=== PATIENT | female | born 1995 | race Caucasian/White ===

== ENCOUNTER 2017-02-02 17:09 | Emergency (ER) | payer OTHER ==
[~2017-02-02] VITALS: Ht 160 cm; Wt 43.6 kg
[2017-02-02 17:16] VITALS: BP 116/75; PULSE 82; RESP 16; O2SAT 100
[2017-02-02 18:02] LABS: Mean Corpuscular Hemoglobin 31.9 pg (27.0-35.0); Mean Corpuscular Volume 92.2 fL (81-100)
[2017-02-02 18:18] LABS: APPEARANCE,URINE HAZY (CLEAR,HAZY); COLOR,URINE YELLOW (YELLOW); OCCULT BLOOD,URINE NEGATIVE (NEGATIVE); PH,URINE 7.5 (5.0-8.0); UROBILINOGEN,URINE NORMAL (NORMAL)
--- NOTE | 2017-02-02 18:24 | ED.REPORT ---
HPI- Female Date of Service Feb 02, 2017 ED Provider: Dale Doran MD The patient is a 21 year old female 15 weeks who presents to the ED due to intermittent, crampy lower right abdominal cramping onset yesterday. Associated symptoms include right sided headache, vomiting. She reports that she hasn't been able to keep any water or food down for a day. She reports that she has had a lot of problems with nausea and vomiting throughout her . She is not currently taking anything for her symptoms. She denies vaginal bleeding and fever. The pt experienced extreme morning sickness including nausea and vomiting during the first trimester and lost 14 lbs but recently her is going well. Nursing Notes Stated Complaint: VOMITING, [id number] Chief Complaint: Female Abdominal Pain Nursing Notes Reviewed: Yes Allergies: Coded Allergies: No Known Allergies (Unverified , 02/02/17) Scheduled Nitrofurantoin Monohyd/M-Cryst (MacroBid) 100 Mg Capsule 100 MG PO BID Pyridoxine (Vitamin B-6) 50 Mg Tablet 50 MG PO DAILY Scheduled PRN Doxylamine Succinate (Unisom) 25 Mg Tablet 25 MG PO BID PRN PRN For Nausea General Time Seen by MD: 18:18 Chief Complaint Abdominal pain... (RLQ) Hx Obtained From: Patient Arrived By: Walk-in Sudden in Onset?: Yes Onset Occurred: Yesterday Symptom Duration: Since onset Location: : RLQ Quality: Cramping Severity: Current: Mild Status: Positive - home urine HCG Recent Healthcare: No recent doctor visit, No recent hospitalization Similar Sx Previous: No Past Medical History Past Medical History Healthy Past Surgical History Reports: Appendectomy Smoking History Current Every Day Smoker Social History Alcohol Use: "Social" Drug Use: THC Ambulatory Status Independent Review of Systems Constitutional: Denies: Fever GI: Reports: Abdominal pain, Nausea, Vomiting, Denies: Diarrhea Female: Reports: , Denies: Vaginal bleeding - abnl, Vaginal discharge Endocrine: Reports: Weight loss Neurologic: Reports: Headache Complete sys rev & neg: except as marked. 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 General/Constitutional: Awake, Alert, No acute distress, Cooperative, Not toxic appearing Respiratory / Chest: Atraumatic, Breath sounds NL, Breath sounds = bilat, No respiratory distress Cardiovascular: Heart rate NL, Regular rhythm, Heart sounds NL Abdomen: Atraumatic, Soft, Non-tender, No guarding, No rebound, BS normoactive , No distention Back: Atraumatic, Inspection NL, Non-tender Skin: Atraumatic, Color NL, Warm, Dry Head / Eyes: Atraumatic, Normocephalic, PERRL, EOMI Upper Extremity / MS: Atraumatic, Inspection NL, Full range of motion, No deformity Lower Extremity / Pelvis / MS: Atraumatic, Inspection NL, Full range of motion , No deformity Neurologic: Oriented X3, Speech NL, No motor deficits Interpretation & Diagnostics Lab Results Interpretation Result Diagram: 02/02/17 1755 02/02/17 1755 Test 02/02/17 17:48 02/02/17 17:55 Urine Color Yellow (YELLOW) Urine Appearance Hazy (CLEAR,HAZY) Urine pH 7.5 (5.0-8.0) Urine Specific [place] 1.010 (1.003-1.035) Urine Protein Negativemg/dL (NEG,TRACE) Urine Glucose (UA) Negativemg/dL (NEGATIVE) Urine Ketones 15mg/dL (NEGATIVE) Urine Occult Blood Negative (NEGATIVE) Urine Nitrite Negative (NEGATIVE) Urine Bilirubin Negative (NEGATIVE) Urine Urobilinogen Normalmg/dL (NORMAL) Urine Leukocyte Esterase Negative (NEGATIVE) Urine RBC 0-2/hpf (0-2) Urine WBC 0-5/hpf (0-5) Urine Epithelial Cells Few/hpf (NONE-MOD) Urine Crystals None seen (NONE SEEN) Urine Bacteria Moderate/hpf (NONE-FEW) Urine Hyaline Casts None/lpf (NONE) Urine Granular Casts None seen (NONE SEEN) Urine Waxy Casts None seen (NONE SEEN) Urine Red Blood Cell Casts None seen (NONE SEEN) Urine White Blood Cell Casts None seen (NONE SEEN) Urine Mucus None seen (None Seen) Urine Trichomonas None seen (NONE SEEN) Urine Yeast None (NONE SEEN) Urinalysis Comment None Urine Culture Reflexed Indicated White Blood Count 13.7th/mm3 (3.8-10.1) Red Blood Count 3.85mil/mm3 (3.90-5.20) Hemoglobin 12.3g/dL (12.0-15.6) Hematocrit 35.5% (35.0-46.0) Mean Corpuscular Volume 92.2fL (81-100) Mean Corpuscular Hemoglobin 31.9pg (27.0-35.0) Mean Corpuscular Hemoglobin Concent 34.6% (32.0-37.0) Red Cell Distribution Width 12.6% (12.3-15.4) Platelet Count 182bil/L (150-400) Sodium Level 135mEq/L (134-144) Potassium Level 3.8mEq/L (3.5-5.2) Chloride Level 101mEq/L (97-108) Carbon Dioxide Level 21mmol/L (18-29) Blood Urea Nitrogen 9mg/dL (6-20) Creatinine 0.36mg/dL (0.57-1.00) Estimat Glomerular Filtration Rate 320mL/min (>59) Glucose Level 84mg/dL (60-99) Calcium Level 9.1mg/dL (8.5-10.1) Total Bilirubin 0.4mg/dL (0.0-1.2) Aspartate Amino Transf (AST/SGOT) 22U/L (0-50) Alanine Aminotransferase (ALT/SGPT) 17U/L (0-32) Alkaline Phosphatase 35U/L (25-150) Total Protein 6.7g/dL (6.4-8.4) Albumin 3.9g/dL (3.4-5.0) HCG Beta Subunit [id number]/mL Hold Edwards Top Tube Received (Received) Re-Eval/Medical Decision Med Decision/Clinical Course Patient is a generally healthy 21-year-old female approximately 15 weeks' who presents to the emergency department complaining of nausea and vomiting as well as occasional right lower abdominal pain. She has previously had an appendectomy. Here in the emergency department the patient is afebrile with stable vital signs and in no apparent distress. She denies any vaginal bleeding or other complaints. She was treated with Zofran and was able to tolerate fluids drinking several glasses of juice and water without any emesis. Laboratory studies notable as below: CBC 13.7 CMP unremarkable HCG 78789 UA moderate bacteria negative leukocytes negative nitrates sent for culture vital signs good ULTRASOUND IMPRESSION: normal placenta is low lying right ovary looks fine pt does not have appendix At this time, no evidence of threatened . Serial abdominal examinations remained benign. Patient does appear to have possible urinary tract infection and will therefore be treated with a course of Macrobid. I have advised doxylamine and vitamin B6 for management of nausea and vomiting in . At this time ultrasound is reassuring and she is tolerating PO. He does not appear significantly dehydrated. I suspect that her pain is related to round ligament discomfort. While she does have moderate bacteria on her urinalysis I see no evidence that her pain is related to pelvic nephritis and she is overall very well in appearance. She will follow up closely with her FAMILY PHYSICIAN. Prior to discharge follow-up and return precautions were reviewed in detail with the patient who verbalized understanding and agreement with the plan. The patient was discharged in stable condition. Re-Evaluation/Progress #1: Time of Eval: 19:35 Re-Evaluation/Progress Note: Plan for IV fluids, IV benadryl and zofran ODT. Re-Evaluation/Progress #2: Time of Eval: 19:55 Re-Evaluation/Progress Note: Pt rechecked. Informed pt of normal US results, diagnosis of UTI and plan for treatment. Pt understands and agrees with plan. F/U and RTER warnings given. All questions addressed. Counseled Regarding: Diagnosis, Lab results, Need for follow-up, When/why to return to ED Discharge & Departure Impression: Primary Impression: Urinary tract infection Urinary tract infection type: site unspecified Hematuria presence: without hematuria Qualified Code: N39.0 - Urinary tract infection, site not specified Additional Impressions: Nausea and vomiting Vomiting type: unspecified Vomiting Intractability: unspecified Qualified Code: R11.2 - Nausea with vomiting, unspecified Weeks of gestation: 15 weeks Qualified Code: Z3A.15 - 15 weeks gestation of Leukocytosis Leukocytosis type: unspecified Qualified Code: D72.829 - Elevated white blood cell count, unspecified Disposition: Home Discharge Condition All VS Reviewed: Yes Condition: Stable Additional Instructions: The US showed a normal fetus. The baby is healthy and growing normally. To help with nausea and vomiting, I recommend taking the sleep aid doxylamine (unisom) and Vitamin B6 as well. Both of these are safe during . Your urine shows some bacteria. I am going to send you home with antibiotics for a urinary tract infection. Please follow up with your OBGYN in the next 1-3 days. Return to the Emergency Department if you experience any new or worsening symptoms including vaginal bleeding, cramping, fevers, chills or abdominal pain. Thank you for entrusting us with your care today. Referrals: [facility] (PCP) [facility] [place] Att[facility] Portion of this note were transcribed by Soraya Nielsen. I, Dr. Doran, personally performed the history, physical exam, and medical decision-making: I reviewed and confirmed the accuracy for the information in the transcribed note. Signed by: nikia Alcala, 02/02/17 2100 copies to: [facility] Dale Doran MD Feb 02, 2017 18:24 Soraya Nielsen Feb 02, 2017 19:42
[2017-02-02] MEDS ORDERED: 0.9% Sodium Chloride 1,000 ML IV ONE (18:25)
[2017-02-02] MEDS ORDERED: PYR50 PO (19:59)
[2017-02-02] MEDS ORDERED: DOXY25TA46 PO (19:59)
[2017-02-02] MEDS ORDERED: NITR100 PO (20:00)
[2017-02-02 20:06] VITALS: BP 105/71; PULSE 15; RESP 16; O2SAT 96
--- NOTE | 2017-02-02 20:23 | DRSVH ---
PROCEDURE: US OB FOLLOW UP GROWTH AND TRANSVAGINAL INDICATIONS: preg, cramping, look at appendix if possible OUTSIDE/PRIOR DATING DATA: Last menstrual period (LMP): Unknown. LMP-based estimated date of delivery (ILEANA): Unknown. First dating scan (date and location): 12/06/16. Estimated date of delivery (ILEANA) from first dating scan: 07/31/17. TECHNIQUE: Real-time scanning was performed of the fetus, with image documentation and biometric measurements. COMPARISON: None. FINDINGS: General: A single living intrauterine gestation is present. Presentation: Variable. Placenta: Placental position is anterior, with a low-lying placenta 1 cm from internal os. OB-REGIONAL DIRECTOR OF ADMISSIONS Ultrasound Procedure Report Summary Fetus Summary Estimated Gestational Age from first dating scan: 14 weeks, 3 days Estimated Gestational Age from present scan: 15 weeks, 0 days Heart Rate: 149 bpm Findings(Amniotic Sac) Amniotic Fluid Index: 15.60 cm Biometry BiometryGroup Biparietal Diameter (Mean): 2.87 cm Gestational Age (BPD): 15 weeks, 1 day Head Circumference (Mean): 10.58 cm Gestational Age (HC): 15 weeks, 0 days Abdominal Circumference (Mean): 8.90 cm Gestational Age (AC): 15 weeks, 1 day Femur Length (Mean): 1.58 cm Gestational Age (FL): 14 weeks, 5 days Pelvis and Uterus Cervix Length: 4.49 cm Measurement variability in biometric dating: +/- 7 days from 14 weeks to 15 weeks 6 days gestation, + /- 10 days from 16 weeks to 21 weeks 6 days gestation, +/- 2 weeks from 22 weeks to 27 weeks 6 days g estation, +/- 3 weeks for 28 weeks gestation or later. Other: And no abnormality is seen. Technologist notes that the patient has a history of surgically ab sent appendix. Right ovary shows no abnormality. The left ovary is normal but may contain a corpus norm teal cyst up to 18 mm in size. IMPRESSION: Viable intrauterine gestation demonstrating normal interval growth amniotic fluid line is normal. Cause of right lower quadrant pain is not identified. Right ovary is normal. Dictated by: Hari Gilliam M.D. on 02/02/2017 at 20:18 Approved by: Hari Gilliam M.D. on 02/02/2017 at 20:22
== END 2017-02-02 20:06 | disposition home or self-care (01) ==
LOC: SED 17:09
DX: O23.42 Unspecified infection of urinary tract in pregnancy, second trimester (principal); D72.829 Elevated white blood cell count, unspecified; O21.0 Mild hyperemesis gravidarum; F17.200 Nicotine dependence, unspecified, uncomplicated; Z3A.15 15 weeks gestation of pregnancy